=== PATIENT | female | born 1985 | race Caucasian/White ===

== ENCOUNTER 2017-01-06 07:23 | Day surgery (SDC) | payer BC ==
[~2017-01-06 07:23] MED LIST: Buffered Lidocaine 0.9% SYRIN* 5 ML/SYR SYRINGE INTRADERM ONE
[2017-01-06 08:19] LABS: Hematocrit 39 % (35-47); Hemoglobin 13.4 g/dl (12.0-16.0); Mean Corpuscular HGB Conc 34 g/dl (31-36); Mean Corpuscular Hemoglobin 29 pg (27-31); Mean Corpuscular Volume 85 fL (80-97); Mean Platelet Volume 8 um3 (7.4-10.4); Red Blood Count 4.64 10^6/ul (4.0-5.4); Red Cell Distribution Width 14 % (10.5-15)
[2017-01-06] MEDS ORDERED: Misoprostol TAB* 200 MCG ONE ×3 (08:37→08:46)
[2017-01-06] MEDS ORDERED: Lidocaine 1% INJ* 10 MG/ML 30 ML SDV ONE (08:52)
[2017-01-06] MEDS ORDERED: Midazolam* 1 MG/ML 5 ML VIAL (5 MG) ONE ×2 (09:08→09:20)
[2017-01-06] MEDS ORDERED: fentaNYL* 50 MCG/ML 2 ML VIAL (100 MCG VIAL) ONE (09:15)
[2017-01-06] MEDS ORDERED: Propofol* 10 MG/ML 20 ML BTL IV PUSH ONE (09:15)
[2017-01-06] MEDS ORDERED: oxyCODONE TAB* 5 MG TAB PO PRN (09:38)
[2017-01-06] MEDS ORDERED: HYDROcodone/ACETAMIN 5-325 MG* 1 TAB PO PRN (09:38)
[2017-01-06] MEDS ORDERED: fentaNYL* 50 MCG/ML 2 ML VIAL (100 MCG VIAL) IV PRN (09:38)
[2017-01-06] MEDS ORDERED: Ondansetron INJ* 2 MG/ML VIAL IV PRN (09:38)
[2017-01-06 11:08] VITALS: BP 111/84
--- NOTE | 2017-01-07 04:33 | OP ---
OPERATIVE REPORT: DATE OF OPERATION: 01/06/17 - [facility] DATE OF : 83 SURGEON: Tammie Alonso MD ANESTHESIOLOGIST: Sreedhar Farnsworth MD ANESTHESIA: General, sedation with paracervical block. PRE-OP DIAGNOSIS: Intrauterine , missed at 10 weeks. POST-OP DIAGNOSIS: Intrauterine , missed at 10 weeks. OPERATIVE PROCEDURE: Dilation, evacuation and curettage. ESTIMATED BLOOD LOSS: 250 cc. URINE OUTPUT: 150 cc of clear yellow urine. FLUIDS: 900 cc of crystalloid. FINDINGS: Revealed intrauterine content consistent with products of conception. Uterine curetting consistent with complete evacuation of intrauterine , laceration on the anterior lip of the cervix at tenaculum site. COMPLICATIONS: None apparent. DISPOSITION: Stable to recovery room. DESCRIPTION OF PROCEDURE: The patient was placed in dorsal lithotomy position. Legs were placed in candy cane stirrups. The perineum and vagina were prepped and draped in a sterile standard fashion. The patient was identified with universal protocol for correct procedure, patient, and position. A sterile self -cath was inserted for drainage of clear yellow urine of 150 cc. Sterile cath was removed. Sterile speculum was inserted. The cervix was grasped on the anterior lip with a single-tooth tenaculum after injecting 5 cc of 1% lidocaine on the anterior cervix. The posterior cervix after grasping with single tooth tenaculum was then injected with another 5 cc of 1% lidocaine. At that point, dilation was then carried out to #10 Hegar dilator. The tenaculum through the cervix with the placement of the 10-mm Hegar. The tenaculum was reapplied. After dilating #10 Hegar dilator, the 10-mm curved suction curette was then applied for complete evacuation of intrauterine contents. Sharp curettage was then performed confirming complete evacuation of intrauterine contents. Single-tooth tenaculum was removed. There was a tear noted from the single-tooth tenaculum and this was reapproximated on the anterior lip of the cervix with 3-0 Polysorb in interrupted fashion. Hemostasis was noted. 80 mcg of Cytotec was then placed after removal of the speculum and hemostasis was assured. The patient was then taken out of candy cane stirrups, returned to dorsal lithotomy position, and then taken to recovery room in stable condition. [id number]/[facility] #: [id number] MTDD
== END 2017-01-06 11:53 | disposition home or self-care (01) ==
LOC: OR 07:23
PROVIDERS: ATTEND Obstetrics & Gynecology
DX: O02.1 Missed abortion (principal)
CPT/HCPCS: 36415; 85025; 86850; 86900; 86901; 88305; A9270-GY; J2001; J2250; J2704; J3010

== ENCOUNTER 2017-12-28 07:59 | Inpatient (IN) | payer BC ==
[2017-12-28] MEDS ORDERED: Lidocaine 1%* 5 ML VIAL ONE (08:13)
[2017-12-28] MEDS ORDERED: ceFOXitin 2 GM IVPREMIX* 2 GM/50 ML BAG ONE (09:04)
[2017-12-28] MEDS ORDERED: Sodium Citrate/Citric Acid* 15 ML UDC ONE (09:04)
[2017-12-28] MEDS ORDERED: ceFOXitin 2 GM IVPREMIX* 2 GM/50 ML BAG IVPB ONE (09:05)
[2017-12-28] MEDS ORDERED: Bupivacaine-MPF SPINAL* 7.5 MG/ML - 2ML AMP ONE (09:27)
[2017-12-28] MEDS ORDERED: Morphine PF AMP (0.5MG/ML)* 5 MG/10 ML AMP ONE (09:27)
[2017-12-28] MEDS ORDERED: OXYTOCIN* 10 UNITS/ML 1 ML VIAL ONE (10:06)
[2017-12-28] MEDS ORDERED: Ondansetron INJ* 2 MG/ML VIAL IV PRN ×2 (10:13→10:14)
[2017-12-28] MEDS ORDERED: fentaNYL* 50 MCG/ML 2 ML VIAL (100 MCG VIAL) IV PRN (10:13)
[2017-12-28] MEDS ORDERED: Ketorolac INJ* 30 MG/ML 1 ML VIAL ONE (10:13)
[2017-12-28] MEDS ORDERED: Naloxone* 0.4 MG/ML 1 ML VIAL IV PRN ×2 (10:13→10:14)
[2017-12-28] MEDS ORDERED: DiMENhydriNATE IV* 50 MG/ML VIAL IV PUSH PRN (10:14)
[2017-12-28] MEDS ORDERED: Nalbuphine* 10 MG/ML 1 ML VIAL IV PRN (10:14)
[2017-12-28] MEDS ORDERED: oxyCODONE/Acetamin 5/325 MG* TAB PO PRN (10:14)
[2017-12-28] MEDS ORDERED: Scopolamine 1.5 mg* PATCH TRANSDERM PRN (10:14)
[2017-12-28] MEDS ORDERED: diPHENhydraMINE IV* 50 MG/ML 1 ml VIAL (BENADRYL) IV PRN (10:14)
[2017-12-28] MEDS ORDERED: Phenylephrine INJ* 10 MG/ML 1 ML VIAL (10 MG) ONE (10:20)
[2017-12-28] MEDS ORDERED: EPHEDrine (Pressors)* 50 MG/ML VIAL ONE (10:20)
[2017-12-28] MEDS ORDERED: Ondansetron INJ* 2 MG/ML VIAL ONE (10:23)
[2017-12-28] MEDS ORDERED: Glycerin ADULT SUPP PR PRN (10:44)
[2017-12-28] MEDS ORDERED: Zolpidem TAB* 5 MG PO PRN (10:44)
[2017-12-28] MEDS ORDERED: Witch Hazel PAD* JAR TOPICAL PRN (10:44)
[2017-12-28] MEDS ORDERED: Acetaminophen TAB* 325 MG PO PRN (10:44)
[2017-12-28] MEDS ORDERED: Dibucaine 1% 28.35 GM TUBE PR PRN (10:44)
[2017-12-28] MEDS ORDERED: Oxytocin in LR* 20 UNITS/1,000 ML BAG IVPB SCH (11:00)
[2017-12-28] MEDS: Docusate CAP* 100 MG PO SCH ×2 (13:32→22:30)
[2017-12-28] MEDS: Simethicone TAB* 80 MG TAB.CHEW PO SCH ×3 (13:32→22:30)
[2017-12-28] MEDS: Ketorolac INJ* 30 MG/ML 1 ML VIAL IV PRN ×2 (16:30→22:31)
--- NOTE | 2017-12-29 01:19 | OP ---
DATE OF OPERATION: 12/28/17 - ROOM #113 DATE OF : 83 SURGEON: Deon De La Fuente MD CUSTOM STUDIO COORDINATOR: Lois Gaspar CNM ANESTHESIA: Spinal. PRE-OP DIAGNOSIS: Previous section, desires permanent sterilization. POST-OP DIAGNOSIS: Previous section, desires permanent sterilization. OPERATIVE PROCEDURE: Low transverse section, bilateral tubal ligation. COMPLICATIONS: None. FINDINGS: This is a 32-year-old with previous section who desired elective repeat and tubal at the time of . She had a viable male, Apgars 8 and 9, weight was 6 pounds 12 ounces. Normal-appearing uterus, fallopian tubes, and ovaries. DESCRIPTION OF PROCEDURE: The patient was identified, procedure identified as a low transverse section. The patient was taken to the operating room, prepped and draped in the usual fashion in the left lateral recumbent position under spinal anesthesia. A Pfannenstiel incision was made through the old incision and carried down through the fat, fascia and peritoneum. A bladder flap was created via sharp dissection. A transverse incision was made in the lower uterine segment and extended laterally using blunt dissection. The infant was delivered through the incision with ease. The cord was doubly clamped and cut, and the was handed to the awaiting pouch maker. Cord blood was obtained. Placenta was delivered spontaneously. The uterus was wiped out with wet lap sponge. The uterine incision was then closed using 0 Polysorb in a running fashion. A second layer was used to imbricate the first layer. Good hemostasis was verified. The right fallopian tube was grasped with a fimbriated end and ligated using 0 Polysorb ties x2 and the fimbria was excised. Same procedure was carried out on the left after following it out to its fimbriated ends. Good hemostasis was verified. Uterus placed back in the abdominal cavity. All sites were inspected, found to be hemostatic using the Bovie. The peritoneum was then closed using 3-0 Polysorb in a running fashion. Good hemostasis was achieved in the subrectus layers. The fascia was closed using 0 Polysorb in a running fashion. Good hemostasis was achieved in the subcu. Copious irrigation was utilized and suctioned out, and the skin was closed with 4-0 Monocryl in a subcuticular fashion. All sponge and instrument counts were correct. The patient returned to the recovery room in stable condition. [id number] #: [id number] [facility]
[2017-12-29] MEDS ORDERED: oxyCODONE/Acetamin 5/325 MG* TAB PO PRN ×2 (01:50)
[2017-12-29] MEDS: Ketorolac INJ* 30 MG/ML 1 ML VIAL IV PRN (04:53)
[2017-12-29 06:38] LABS: ABS Basophils 0 10^3/ul (0-0.2); ABS Eosinophils 0.1 10^3/ul (0-0.6); ABS Lymphocytes 1.6 10^3/ul (1.0-4.8); ABS Monocytes 0.7 10^3/ul (0-0.8); ABS Neutrophils 8.2 10^3/ul (1.5-7.7); ABS Nucleated RBC 0 10^3/ul; Eosinophil % 0.7 % (0-6); Hematocrit 36 % (35-47); Hemoglobin 12.7 g/dl (12.0-16.0); Lymphocyte % 15.3 % (25-47); Mean Corpuscular HGB Conc 35 g/dl (31-36); Mean Corpuscular Hemoglobin 30 pg (27-31); Mean Corpuscular Volume 86 fL (80-97); Mean Platelet Volume 9.5 um3 (7.4-10.4); Nucleated Red Blood Cells % 0; Platelet Count 121 10^3/ul (150-450); Red Blood Count 4.22 10^6/ul (4.00-5.40); Red Cell Distribution Width 13 % (10.5-15); White Blood Count 10.7 10^3/ul (3.5-10.8)
[2017-12-29] MEDS: Simethicone TAB* 80 MG TAB.CHEW PO SCH ×4 (08:48→20:34)
[2017-12-29] MEDS: Docusate CAP* 100 MG PO SCH ×3 (08:48→20:34)
[2017-12-29] MEDS ORDERED: Ferrous Gluconate TAB* 324 MG TAB PO SCH (09:00)
[2017-12-29] MEDS: Ibuprofen TAB* 600 MG PO PRN ×2 (11:00→17:03)
[2017-12-30] MEDS: Ibuprofen TAB* 600 MG PO PRN ×2 (00:07→05:30)
[2017-12-30 07:37] VITALS: BP 124/77
[2017-12-30] MEDS: Simethicone TAB* 80 MG TAB.CHEW PO SCH (09:11)
[2017-12-30] MEDS: Docusate CAP* 100 MG PO SCH (09:11)
[2017-12-31] MEDS ORDERED: Scopolamine PATCH Remove* 1 NOTE MISC PATCH OFF PRN (10:16)
== END 2017-12-30 10:03 | disposition home or self-care (01) | DRG 540 ==
LOC: MCHOB 07:59
PROVIDERS: ADMIT Obstetrics & Gynecology; ATTEND Obstetrics & Gynecology
PROC: 10D00Z1 Extraction of Products of Conception, Low, Open Approach (ICD-10-PCS; 2017-12-28)
PROC: 0UB70ZZ Excision of Bilateral Fallopian Tubes, Open Approach (ICD-10-PCS; 2017-12-28)
PROC: 4A0HXCZ Measurement of Products of Conception, Cardiac Rate, External Approach (ICD-10-PCS; principal; 2017-12-28 09:30)
DX: O34.211 Maternal care for low transverse scar from previous cesarean delivery (principal); O69.81X0 Labor and delivery complicated by cord around neck, without compression, not applicable or unspecified; Z3A.39 39 weeks gestation of pregnancy; Z37.0 Single live birth; Z30.2 Encounter for sterilization
CPT/HCPCS: 36415; 85025; 88302; 90686; A9270-GY; J0694; J1885; J2300; J2405; J2590